=== PATIENT | male | born 1995 | race Caucasian/White ===

== ENCOUNTER 2021-04-01 06:45 | Emergency (ER) | payer SELFPAY ==
[~2021-04-01] VITALS: Ht 175.3 cm; Wt 80.0 kg
[2021-04-01 06:56] VITALS: BP 127/82
--- NOTE | 2021-04-01 08:00 | NUR ---
PT BIB EMS FOR ETOH.
--- NOTE | 2021-04-01 09:08 | NUR ---
PT SLEEPING. VSS
--- NOTE | 2021-04-01 11:18 | NUR ---
PT AMBULATED W STEADY GAIT TO EXIT. PT LEFT WALLET, IN SECURITY
== END 2021-04-01 11:20 | disposition home or self-care (01) ==
LOC: ED 11:09
DX: F10.129 Alcohol abuse with intoxication, unspecified (principal); Y90.0 Blood alcohol level of less than 20 mg/100 ml
CPT/HCPCS: 99283